=== PATIENT | male | born 2000 | race American Indian/Alaskan Native ===

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

== ENCOUNTER 2020-07-28 07:57 | Emergency (ER) | payer OTHER ==
[2020-07-28 08:17] VITALS: BP 140/87
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
== END 2020-07-28 10:44 | disposition home or self-care (01) ==
LOC: ED 07:57
DX: S80.02XA Contusion of left knee, initial encounter (principal); S50.01XA Contusion of right elbow, initial encounter; F17.200 Nicotine dependence, unspecified, uncomplicated; F12.10 Cannabis abuse, uncomplicated; Z79.899 Other long term (current) drug therapy; V49.49XA Driver injured in collision with other motor vehicles in traffic accident, initial encounter; Y93.89 Activity, other specified; Y92.89 Other specified places as the place of occurrence of the external cause; Y99.8 Other external cause status

== ENCOUNTER 2021-12-20 16:01 | Emergency (ER) | payer SELFPAY ==
[2021-12-20 16:16] VITALS: BP 155/68
--- NOTE | 2021-12-21 09:19 | Electrocardiograph Report ---
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
== END 2021-12-21 11:24 | disposition left against medical advice (07) ==
LOC: ED 16:01
DX: R07.9 Chest pain, unspecified (principal); Z53.21 Procedure and treatment not carried out due to patient leaving prior to being seen by health care provider
CPT/HCPCS: 93005